=== PATIENT | male | born 1950 | race Caucasian/White ===

== ENCOUNTER 2021-02-23 11:13 | Outpatient (CLI) | payer MEDICARE, BC ==
[2021-02-23 21:45] LABS: SARS-CoV-2 PCR by NAA Not Detected (NotDetected)
== END 2021-02-23 11:14 | disposition home or self-care (01) ==
LOC: CSHLAB 11:13
PROVIDERS: ATTEND Otolaryngology Plastic Surgery within the Head & Neck
DX: Z01.818 Encounter for other preprocedural examination (principal); Z20.822 Contact with and (suspected) exposure to COVID-19
CPT/HCPCS: 93005; 93010; U0003; U0005

== ENCOUNTER 2021-02-28 09:24 | Day surgery (SDC) | payer MEDICARE, BC ==
[2021-02-24 15:51] VITALS: BMI 24.4
[2021-02-28] MEDS ORDERED: Lidocaine 1% MPF 2 ML VIAL ONE (10:18)
[2021-02-28] MEDS ORDERED: PROPOFOL 20 ML ONE (11:46)
[2021-02-28] MEDS ORDERED: Rocuronium Bromide 10 MG/ML (10ML VIAL) ONE (11:46)
[2021-02-28] MEDS ORDERED: Dexamethasone 20 MG/5 ML VIAL ONE (11:46)
[2021-02-28] MEDS ORDERED: Fentanyl 100 MCG/2 ML VIAL ONE (11:46)
[2021-02-28] MEDS ORDERED: Midazolam HCl 2 mg/2 ml Vial ONE (11:46)
[2021-02-28] MEDS ORDERED: Ondansetron PF 4 MG/2 ML Vial ONE (11:46)
[2021-02-28] MEDS ORDERED: Lidocaine 1% PF 5 ML VIAL ONE (11:47)
[2021-02-28] MEDS ORDERED: EPINEPHrine 1 MG/ML AMP ONE ×2 (11:51→11:58)
[2021-02-28] MEDS ORDERED: Oxymetazoline HCl 0.05% ( 15 ML ) ONE (11:51)
[2021-02-28] MEDS ORDERED: Mupirocin 2% Ointment 22 GM Tube ONE (11:51)
[2021-02-28] MEDS ORDERED: Lidocaine 1% w/Epinephrine 1:100K 20 ML VIAL ONE (11:52)
[2021-02-28] MEDS ORDERED: CEFAZOLIN 1 GM VIAL ONE (12:06)
== END 2021-02-28 14:00 | disposition home or self-care (01) ==
LOC: CSHSDC 09:24
PROVIDERS: ATTEND Otolaryngology Plastic Surgery within the Head & Neck
PROC: 0CBM8ZX Excision of Pharynx, Via Natural or Artificial Opening Endoscopic, Diagnostic (ICD-10-PCS; principal; 2021-02-28)
DX: C10.0 Malignant neoplasm of vallecula (principal); I10 Essential (primary) hypertension; E11.9 Type 2 diabetes mellitus without complications; J43.9 Emphysema, unspecified; Z79.899 Other long term (current) drug therapy; Z79.82 Long term (current) use of aspirin; Z79.84 Long term (current) use of oral hypoglycemic drugs
CPT/HCPCS: 88305; 88331; J0171; J0690; J1100; J2250; J2405; J2704; J3010